=== PATIENT | female | born 1995 | race Asian ===

== ENCOUNTER 2022-01-22 14:22 | Outpatient (CLI) | payer BC | END 2022-01-22 14:23 | disposition home or self-care (01) | LOC: CSHLAB 14:22 | PROVIDERS: ATTEND Internal Medicine Gastroenterology | DX: Z20.822 Contact with and (suspected) exposure to COVID-19 (principal); R10.9 Unspecified abdominal pain; R19.4 Change in bowel habit; K62.5 Hemorrhage of anus and rectum | CPT/HCPCS: 87811 ==

== ENCOUNTER 2022-01-27 07:28 | Day surgery (SDC) | payer BC ==
[2022-01-23 10:39] VITALS: BMI 19.3
[2022-01-27] MEDS ORDERED: PROPOFOL 60 ML ONE (08:42)
[2022-01-27] MEDS ORDERED: Lidocaine 2% MPF 10 ML AMP (For Epidural Use) ONE (08:43)
[2022-01-27] MEDS ORDERED: PHENYLEPHRINE-NS 100 MCG/ML 10 ML SYRINGE ONE (09:24)
== END 2022-01-27 11:15 | disposition home or self-care (01) ==
LOC: CSHSDC 07:28
PROVIDERS: ATTEND Internal Medicine Gastroenterology
PROC: 0DB98ZX Excision of Duodenum, Via Natural or Artificial Opening Endoscopic, Diagnostic (ICD-10-PCS; principal; 2022-01-27)
PROC: 0DJD8ZZ Inspection of Lower Intestinal Tract, Via Natural or Artificial Opening Endoscopic (ICD-10-PCS; principal; 2022-01-27)
DX: K31.7 Polyp of stomach and duodenum (principal); K59.00 Constipation, unspecified; K62.5 Hemorrhage of anus and rectum; Z88.1 Allergy status to other antibiotic agents; Z20.822 Contact with and (suspected) exposure to COVID-19
CPT/HCPCS: 88305; J2704